=== PATIENT | female | born 1945 | race Two or more races ===

== ENCOUNTER 2022-12-13 14:47 | Emergency (ER) | payer MEDICARE ==
[~2022-12-13] VITALS: Ht 157.5 cm; Wt 71.8 kg
[2022-12-13] MEDS ORDERED: LEVO75TA4 PO (15:04)
[2022-12-13] MEDS ORDERED: CEPH500C PO (15:04)
[2022-12-13] MEDS ORDERED: ROSU5TAB5 PO (15:04)
[2022-12-13] MEDS ORDERED: DOXY-443 PO (18:33)
[2022-12-13] MEDS ORDERED: PRED20TA PO (18:33)
[2022-12-13 18:38] VITALS: BP 166/86; TEMP 97.9; O2SAT 100
== END 2022-12-13 18:40 | disposition home or self-care (01) ==
LOC: M ED 14:47
DX: L25.9 Unspecified contact dermatitis, unspecified cause (principal); Z88.2 Allergy status to sulfonamides; Z88.0 Allergy status to penicillin; Z79.899 Other long term (current) drug therapy